=== PATIENT | female | born 1990 | race Caucasian/White ===

== ENCOUNTER 2017-02-15 05:27 | Emergency (ER) | payer OTHER ==
[~2017-02-15] VITALS: Ht 154.9 cm; Wt 63.6 kg
[2017-02-15 05:33] VITALS: BP 117/82; PULSE 110; RESP 20; O2SAT 99
--- NOTE | 2017-02-15 06:24 | ED.REPORT ---
HPI-Dyspnea / Wheezing Date of Service Feb 15, 2017 ED Provider: Tavon Orozco MD 26 year old female with a history of asthma and recurrent sinus infections presents to the ER accompanied by her sister and children complaining of a week of frontal headache. Symptoms initially presented like her typical sinus infections, until she developed nausea, chills, SOB, and dry heaving four days ago, with diarrhea onset this morning. She also states that her BP has been elevated to 118 SBP from 96 SBP, and her temperature dropped to 97.4F from her typical 98.6F this morning. Patient denies bloody stool, vomiting, cough, urinary symptoms, and current . Nursing Notes Stated Complaint: POSSIBLE INFECTION Chief Complaint: Respiratory Complaints Nursing Notes Reviewed: Yes Allergies: Coded Allergies: Penicillins (Verified Allergy, Severe, 02/01/15) latex (Verified Allergy, Severe, 02/01/15) General Time Seen by MD: 06:24 Chief Complaint Other (Headache) Hx Obtained From: Patient Arrived By: Walk-in Sudden in Onset?: No Onset Occurred: 1 week ago Symptom Duration: Since onset Associated with: Reports: Nausea, Denies: Cough, Fever, Vomiting Context Asthma History: Asthma diagnosed Similar Sx Previous: Yes Past Medical History Past Medical History Reports: Asthma, Denies: Coronary artery disease, Diabetes mellitus, Hypertension Past Surgical History Reports: , Hysterectomy Smoking History Former Smoker Social History Alcohol Use: Denies alcohol use Drug Use: Denies drug use, THC (occasional) Other Social History: Ambulatory Status Independent Review of Systems Constitutional: Denies: Chills, Fever Respiratory: Reports: Shortness of breath, Denies: Non-productive cough Complete sys rev & neg: except as marked. GI: Reports: Diarrhea, Nausea, Denies: Abdominal pain, Bloody/tarry stool, Hematemesis, Hematochezia, Vomiting Female: Denies: Dysuria, Flank pain, Hematuria, , Urinary frequency , Urinary urgency Neurologic: Reports: Headache Physical Exam 06:49 - HR 90 Initial Vital Signs Vital Signs (First) Date Time Temp Pulse Resp B/P Pulse Ox O2 Delivery O2 Flow Rate FiO2 02/15/17 05:33 36.5 110 20 117/82 99 Room Air Initial VS: Reviewed Head / Eyes: Atraumatic, Normocephalic Abdomen / GI: Soft, Non-tender, No guarding, No rebound, No distention Extremities: Vascular intact, Neuro intact, No swelling, No tenderness Skin: Warm, Dry, No cyanosis Neurologic: Alert, Oriented, Nonfocal General/Constitutional: Awake, Alert, Well developed, Well nourished Neck: Atraumatic, Supple, No meningismus, Full range of motion, No swelling, Non-tender, No masses Respiratory / Chest: Breath sounds NL, Breath sounds = bilat, No respiratory distress, No rales, No rhonchi, No wheezing, No retractions, No stridor Cardiovascular: Heart rate NL, Regular rhythm, Heart sounds NL, Peripheral circulation NL Sinus: Positive: Tender frontal L, Tender frontal R, Tender maxillary L, Tender maxillary R, Tender mild Re-Eval/Medical Decision Source of Hx: Old records Re-Evaluation/Progress : Time of Eval: 06:51 Re-Evaluation/Progress Note: Discussed physical examination findings and plan to discharge. Patient is amenable to the plan. Return precautions given. All other questions addressed. Counseled Regarding: Diagnosis, Need for follow-up, When/why to return to ED Discharge & Departure Impression: Primary Impression: Viral URI Disposition: Home Discharge Condition All VS Reviewed: Yes Condition: Stable Patient Instructions: Upper Respiratory Infection (DC) Additional Instructions: Call your primary care clinic to arrange an appointment for next week. Take Tylenol or ibuprofen as directed for your symptoms. Return to the ER if you develop new or worsening pain, fever, chills, or any other worsening or concerning symptoms. Referrals: Dg Shaw MD (PCP) Jes Attestation Portions of this note were transcribed by Boogie Metzger. I, Dr. Orozco, personally performed the history, physical exam and medical decision-making; I reviewed and confirmed the accuracy of the information in the transcribed note. Signed by: Jes Freeman, 02/15/2017 and 06:56 copies to: Dg Shaw MD, Kirk H MD Feb 15, 2017 06:24 BOOGIE METZGER Feb 15, 2017 06:48
== END 2017-02-15 07:23 | disposition home or self-care (01) ==
LOC: SED 05:27
DX: J06.9 Acute upper respiratory infection, unspecified (principal); J45.909 Unspecified asthma, uncomplicated; Z87.891 Personal history of nicotine dependence; Z88.0 Allergy status to penicillin; Z91.040 Latex allergy status